=== PATIENT | male | born 1930 | race Caucasian/White ===

== ENCOUNTER 2016-06-27 12:22 | Emergency (ER) | payer MEDICARE, OTHER ==
[~2016-06-27] VITALS: Ht 167.6 cm; Wt 76.6 kg
[~2016-06-27 12:22] MED LIST: ASPIR-8181 MG OR; COREG6.25 MG OR; ISOSORB DIN10 MG OR; LISINOPRIL5 MG OR; PLAVIX75 MG OR; VYTORIN1 TA1 OR
[2016-06-27 15:06] VITALS: BP 159/81
== END 2016-06-27 15:13 | disposition home or self-care (01) ==
LOC: ED 12:22
DX: T82.198A Other mechanical complication of other cardiac electronic device, initial encounter (principal)